=== PATIENT | male | born 1965 | race Caucasian/White ===

== ENCOUNTER 2019-10-19 10:07 | Inpatient (IN) | payer MEDICAID, OTHER ==
[~2019-10-19] VITALS: Ht 167.6 cm; Wt 81.0 kg
[2019-10-19] MEDS ORDERED: MORPHINE SULFATE 4 MG/ML SYR/VIAL IV ONE (10:30)
[2019-10-19] MEDS ORDERED: ONDANSETRON HCL 4 MG/2 ML VIAL IV ONE (10:30)
[2019-10-19] MEDS ORDERED: SODIUM CHLORIDE 0.9% 1,000 ML IV ONE (10:45)
[2019-10-19 10:46] LABS: Basophils # (auto) 0 10 ^3/uL (0-0.2); Hemoglobin 17.9 g/dL (13.5-17.5); Lymphocytes # (auto) 1.2 10 ^3/uL (0.4-5.4); Monocytes # (auto) 1.7 10 ^3/uL (0-1.3); White Blood Cell 22.5 10^3/uL (4.4-10.8)
[2019-10-19 10:48] LABS: Basophils % (auto) 0.2 % (0.0-2.0); Eosinophils # (auto) 0 10 ^3/uL (0-0.8); Eosinophils % (auto) 0.1 % (0.0-7.0); Hematocrit 52.8 % (41.0-53.0); Lymphocytes % (auto) 5.4 % (10.0-50.0); Mean Corpuscular Hemoglobin 31.6 pg (28.0-32.0); Mean Corpuscular Hgb Conc. 33.9 g/dL (32.0-36.0); Mean Corpuscular Volume 93.4 fL (80.0-100.0); Monocytes % (auto) 7.7 % (0.0-12.0); Neutrophils # (auto) 19.5 10 ^3/uL (1.6-8.6); Neutrophils % (auto) 86.6 % (37.0-80.0); Nucleated Red Blood Cells % 0.2 %; Platelet Count (auto) 256 10^3/uL (140-450); Red Blood Cells 5.66 10^6/uL (4.5-5.90); Red Cell Distribution Width 14.1 % (11.8-14.3)
[2019-10-19 11:13] LABS: Albumin 3.8 g/dL (3.4-5.0); Calcium 8.8 mg/dL (8.5-10.1); Potassium 3.7 mmol/L (3.5-5.1)
[2019-10-19] MEDS ORDERED: cefTRIAXone 1GM/50ML D5W 50 ML IV ONE ×2 (11:15→15:00)
[2019-10-19] MEDS ORDERED: PANTOPRAZOLE 40 MG/10 ML VIAL INJ IV ONE (11:15)
[2019-10-19 11:16] LABS: BUN/Creatinine Ratio 15.1; Bilirubin, Total 0.5 mg/dL (0.2-1.0); Total Protein 7.1 g/dL (6.4-8.2)
[2019-10-19] MEDS ORDERED: LIDOCAINE VISCOUS 2% 15ML UD PO ONE (15:00)
[2019-10-19] MEDS ORDERED: metroNIDAZOLE 500MG/100ML 100 ML IV ONE (15:00)
[2019-10-19] MEDS ORDERED: ALUM & MAG HYDROX-SIMETH LIQ(MAALOX) 30 ML PO ONE (15:00)
[2019-10-19] MEDS ORDERED: DONNATAL 5ml ORAL Elix (BELLADONNA ALK-PHENOBARB) PO ONE (15:00)
[2019-10-19] MEDS ORDERED: DOCUSATE SOD 100 MG CAP PO PRN (15:45)
[2019-10-19] MEDS ORDERED: NITROGLYCERIN 0.4 MG SL TAB SL PRN (15:45)
[2019-10-19] MEDS ORDERED: ACETAMINOPHEN 325 MG TAB PO PRN (15:45)
[2019-10-19] MEDS ORDERED: HYDROcodone-ACET 5/325MG TAB PO PRN (15:45)
[2019-10-19] MEDS ORDERED: MORPHINE SULF INJ 2 MG/ML SYRINGE 1ML IV PRN ×2 (15:45)
[2019-10-19] MEDS ORDERED: ALUM & MAG HYDROX-SIMETH LIQ(MAALOX) 30 ML PO PRN (15:45)
[2019-10-19] MEDS ORDERED: ONDANSETRON HCL 4 MG/2 ML VIAL IV PRN (15:45)
[2019-10-19] MEDS ORDERED: LORazepam 0.5 MG TAB PO PRN (15:45)
[2019-10-19] MEDS: SODIUM CHLORIDE 0.9% 1,000 ML IV SCH (15:59)
[2019-10-19] MEDS ORDERED: NIFEdipine ER 30 MG TAB PO ONE (16:45)
[2019-10-19] MEDS ORDERED: hydrALAZINE HCL 20 MG/ML VL IV PRN (16:45)
[2019-10-19] MEDS: SUCRALFATE 1 GM/10 ML ORAL SUSP PO SCH ×2 (17:00→23:09)
[2019-10-19 17:26] LABS: Amphetamine Screen, Urine POSITIVE (NEGATIVE); Barbiturate Scree,Urine NEGATIVE (NEGATIVE); Benzodiazephine Screen, Urine NEGATIVE (NEGATIVE); Cannabinoid Screen, Urine POSITIVE (NEGATIVE); Cocaine Screen, Urine NEGATIVE (NEGATIVE); Opiate Scree,Urine POSITIVE (NEGATIVE); Phencyclidine Screen, Urine POSITIVE (NEGATIVE)
[2019-10-19 18:02] LABS: Urine Bacteria NONE SEEN /hpf (None Seen); Urine Blood Negative /uL (Negative); Urine Mucus FEW (None Seen); Urine Specific Gravity 1.025 (1.001-1.035); Urine WBC 1 /hpf (0 - 3)
[2019-10-19 20:00] LABS: Cholesterol 142 mg/dL (< 200)
[2019-10-19 20:04] LABS: HDL Cholesterol 42 mg/dL (40-59); LDL Cholesterol 91 mg/dL (< 100); Triglycerides 160 mg/dL (< 150)
[2019-10-19 20:36] LABS: INR 1.02 (0.9-1.15)
[2019-10-19 20:48] VITALS: BP 116/78
--- NOTE | 2019-10-19 20:48 | NUR ---
arrival note pt arrived via wheelchair. pt is ambulatory, transferred self to hospital bed.
--- NOTE | 2019-10-19 22:00 | NUR ---
Covid 19 swab sent to lab.
[2019-10-19 22:27] VITALS: BP 116/78
[2019-10-19] MEDS: metroNIDAZOLE 500MG/100ML 100 ML IV SCH (23:09)
[2019-10-19] MEDS: PANTOPRAZOLE 40 MG TAB PO SCH (23:10)
[2019-10-20 05:02] VITALS: BP 112/69
[2019-10-20] MEDS: metroNIDAZOLE 500MG/100ML 100 ML IV SCH (06:35)
[2019-10-20] MEDS: SUCRALFATE 1 GM/10 ML ORAL SUSP PO SCH (06:35)
[2019-10-20 08:00] VITALS: BP_SYST 115; BP_SYST 127; BP_DIAS 74; BP_DIAS 79
--- NOTE | 2019-10-20 08:00 | NUR ---
ASSESSMENT NOTE PT IS ALERT ORIENTED X4, RESTING IN BED COMFORTABLY, NO DISTRESS NOTED, ABLE TO VERBALIS HIS NEEDS, SELF REPOSITION NEEDED, LEFT EYE IS BLIND, PAIN 0/10, NPO FOR EGD, ROOM AIR SAT AT 96%, ON FALL RISK PRECAUTIONS, CALL LIGHT WITHIN REACH
[2019-10-20] MEDS: SODIUM CHLORIDE 0.9% 1,000 ML IV SCH (08:21)
[2019-10-20] MEDS: PANTOPRAZOLE 40 MG TAB PO SCH (08:43)
--- NOTE | 2019-10-20 08:45 | NUR ---
ALL AM MEDICATIONS ARE GIVEN TO PT WITH SOME WATER, LOVENOX HOLD FOR EGD PROCEDURE TODAY, PT MADE AWARE THAT HE IS GOING TO HAVE EGD VERY SOON AND WILL BE TRANSFER WITH THE HOSPITAL BED, PT VERBALIS UNDERSTANDING
[2019-10-20] MEDS ORDERED: diphenhdrAMINE HCL 50 MG/1 ML VL ONE (09:06)
[2019-10-20] MEDS ORDERED: fentaNYL CITRATE 100 MCG/2 ML VL ONE (09:06)
[2019-10-20] MEDS ORDERED: LIDOCAINE VISCOUS 2% 15ML UD ONE (09:06)
[2019-10-20] MEDS ORDERED: MIDAZOLAM HCL 5 MG/ML-1ML VIAL ONE (09:06)
--- NOTE | 2019-10-20 09:30 | NUR ---
FAMILY PATIENT'S SISTER CALLED, STATED < MY BROTHER WANT TO CHECK OUT AND GO TO ANOTHER HOSPITAL> MADE AWARE THAT I WILL GOING TO TALK TO HIM
--- NOTE | 2019-10-20 09:35 | NUR ---
WALK IN IN PATIENT ROOM IN ORDER TO TAKE HIM TO GI LAB EGD, PT NO WHERE TO BE FOUND, FOUND PATIENT'S IV INTACT ON THE FLOOR ALONG WITH HEART MONITOR
--- NOTE | 2019-10-20 09:40 | NUR ---
AFTER LOOKING FOR PT, CALLED SECURITY TO LOOK AT THE CAMERA, WHEN PT LEFT
[2019-10-20] MEDS ORDERED: PANTOPRAZOLE 40 MG/10 ML VIAL INJ IV SCH (10:00)
[2019-10-20] MEDS ORDERED: ENOXAPARIN SOD 40 MG/0.4 ML SYRINGE SC SCH (10:00)
[2019-10-20] MEDS ORDERED: NIFEdipine ER 30 MG TAB PO SCH (10:00)
[2019-10-20] MEDS ORDERED: CEFTRIAXONE SODIUM 2 GM in D5W 5% 50 ML IV SCH (10:00)
--- NOTE | 2019-10-20 10:00 | NUR ---
DR ADAMS AND CHARGE NURSE RN GRIFFIN Montenegro MADE AWARE OF PATIENT'S ELOPEMENT
--- NOTE | 2019-10-20 10:15 | NUR ---
SECURITY CALLED INFORM ME PT LEFT EXACTLY AT 09 FROM THE BACK DOOR, TO HIS CARE AND DROVE AWAY
[2019-10-20] MEDS ORDERED: levoFLOXacin 750MG 150 ML IV ONE (11:30)
--- NOTE | 2019-10-20 16:00 | NUR ---
PEDRITO FROM INFECTION CONTROL CALLED ME SAID THAT HE WILL GOING TO CONTACT PT AND LET HIM KNOW THAT HE IS NEGATIVE FOR COVID
[2019-10-21] MEDS ORDERED: levoFLOXacin 750MG 150 ML IV SCH (10:00)
== END 2019-10-20 09:35 | disposition left against medical advice (07) | DRG 241 ==
LOC: EDBD 10:07 → ER 10:07 → TELE 10:08 → TELE-EAST 20:45
PROVIDERS: ADMIT Hospitalist; ATTEND Hospitalist
DX: K29.20 Alcoholic gastritis without bleeding (principal); E86.0 Dehydration; N45.1 Epididymitis; I16.9 Hypertensive crisis, unspecified; I10 Essential (primary) hypertension; K21.9 Gastro-esophageal reflux disease without esophagitis; N20.0 Calculus of kidney; K40.90 Unilateral inguinal hernia, without obstruction or gangrene, not specified as recurrent; N28.9 Disorder of kidney and ureter, unspecified; F12.90 Cannabis use, unspecified, uncomplicated; F17.210 Nicotine dependence, cigarettes, uncomplicated; K29.50 Unspecified chronic gastritis without bleeding; Z87.442 Personal history of urinary calculi; Z82.49 Family history of ischemic heart disease and other diseases of the circulatory system; Y90.9 Presence of alcohol in blood, level not specified; N50.89 Other specified disorders of the male genital organs; Z20.828 Contact with and (suspected) exposure to other viral communicable diseases; N43.3 Hydrocele, unspecified; N44.00 Torsion of testis, unspecified; F10.10 Alcohol abuse, uncomplicated
CPT/HCPCS: 36415; 71045; 74176; 76775; 76870; 80053; 80061; 80307; 81001; 82150; 83036; 83605; 83690; 84484; 85025; 85610; 86141; 86850; 86900; 86901; 87040; 87086; 87426; 93005; 96365; 96367; 96375; C9113; G0378; J0696; J2250; J2405; J3490; J7060